=== PATIENT | male | born 1980 | race Caucasian/White ===

== ENCOUNTER 2019-03-12 11:08 | Emergency (ER) | payer MEDICAID ==
[2019-03-12] MEDS: CEFEPIME 2GM/50 ML (PMX) 50 ML IVPB (12:42)
[2019-03-12] MEDS: VANCOMYCIN 1 GM (PMX) 250 ML IVPB (12:43)
[2019-03-12] MEDS: SODIUM CHLORIDE 0.9% 1L BAG IV* (12:43)
[2019-03-12 12:58] LABS: ADD MAN DIFF? NO
[2019-03-12 13:08] LABS: WHITE BLOOD COUNT 6.3 10^3/ul (4.8-10.8)
[2019-03-12 13:08] LABS: BASOPHILS % 0.5 % (0.0-2.0); EOSINOPHILS # 0.1 10^3/ul (0.0-0.5); EOSINOPHILS % 1.4 % (0.0-7.0); HEMATOCRIT 41.5 % (42.0-52.0); HEMOGLOBIN 14.1 g/dl (14.0-18.0); LYMPHOCYTES # 1.9 10^3/ul (0.8-2.9); LYMPHOCYTES % 29.7 % (15.0-51.0); MEAN CORPUSCULAR HEMOGLOBIN 30.7 pg (29.0-33.0); MEAN CORPUSCULAR VOLUME 90.2 fl (82.0-101.0); MEAN PLATELET VOLUME 9.1 fl (7.4-10.4); MONOCYTE # 0.4 10^3/ul (0.3-0.9); MONOCYTES % 6.6 % (0.0-11.0); NEUTROPHIL # 3.9 10^3/ul (1.6-7.5); NEUTROPHILS % 61.5 % (39.0-77.0); PLATELET COUNT 531 10^3/UL (140-415); RED CELL DISTRIBUTION WIDTH 12.5 % (11.5-14.5)
[2019-03-12 13:27] LABS: INR 0.96; PROTIME 12.9 Sec (11.9-14.9)
[2019-03-12 13:28] LABS: PARTIAL THROMBOPLASTIN TIME 27.6 Sec (23.0-35.0)
[2019-03-12 13:34] LABS: CARBON DIOXIDE 26 mmol/L (21-31); CHLORIDE 107 mmol/L (97-110); POTASSIUM 3.8 mmol/L (3.5-5.1); SODIUM 140 mmol/L (135-144)
[2019-03-12 13:35] LABS: ALANINE AMINOTRANSFERASE 26 IU/L (13-69); ALBUMIN 3.7 g/dl (3.3-4.9); ALBUMIN/GLOBULIN RATIO 1.08; ALKALINE PHOSPHATASE 94 IU/L (42-121); ANION GAP 7 (5-13); ASPARTATE AMINO TRANSFERASE 25 IU/L (15-46); BILIRUBIN,INDIRECT 0.3 mg/dl (0-1.1); BILIRUBIN,TOTAL 0.3 mg/dl (0.2-1.3); BLOOD UREA NITROGEN 9 mg/dl (7-20); C-REACTIVE PROTEIN 6.1 mg/dl (0.0-0.9); CALCIUM 9.1 mg/dl (8.4-10.2); Estimated GFR > 60 mL/min (>60); GLUCOSE 117 mg/dl (70-220); TOTAL PROTEIN 7.1 g/dl (6.1-8.1)
== END 2019-03-12 16:09 | disposition home or self-care (01) ==
LOC: E/R 11:08
DX: M00.9 Pyogenic arthritis, unspecified (principal); I10 Essential (primary) hypertension
CPT/HCPCS: 36415; 73562; 80053; 83605; 85025; 85610; 85651; 85730; 86140; 87040-91; 87070; 93005; 96374; 96375; 99285-25

== ENCOUNTER 2019-03-13 21:26 | Emergency (ER) | payer MEDICAID | END 2019-03-13 23:17 | disposition home or self-care (01) | LOC: FTE 21:26 | DX: Z03.89 Encounter for observation for other suspected diseases and conditions ruled out (principal); I10 Essential (primary) hypertension | CPT/HCPCS: 99282; Z7502 ==